=== PATIENT | female | born 1990 | race Caucasian/White ===

== ENCOUNTER 2021-12-10 18:13 | Emergency (ER) | payer OTHER ==
[~2021-12-10 18:13] MED LIST: IBUPROFEN600 MG PO
[2021-12-10] MEDS ORDERED: IBUPROFEN800 MG PO (22:03)
== END 2021-12-10 22:33 | disposition home or self-care (01) ==
LOC: ER1 18:13
DX: S93.601A Unspecified sprain of right foot, initial encounter (principal); F17.200 Nicotine dependence, unspecified, uncomplicated; Z88.0 Allergy status to penicillin; W01.0XXA Fall on same level from slipping, tripping and stumbling without subsequent striking against object, initial encounter; Y92.009 Unspecified place in unspecified non-institutional (private) residence as the place of occurrence of the external cause
CPT/HCPCS: 73620; 99283